=== PATIENT | male | born 1965 | race Caucasian/White ===

== ENCOUNTER → 2019-10-15 14:30 | Outpatient (BNVA) | payer MEDICAID, SELFPAY | PROVIDERS: Family Provider Family Medicine; PCP Urology; Visit Provider Nurse Practitioner Family | DX: R39.9 Unspecified symptoms and signs involving the genitourinary system (principal); R33.9 Retention of urine, unspecified | CPT/HCPCS: 81001 ==

== ENCOUNTER 2019-11-02 08:56 | Outpatient (CLI) | payer MEDICAID, SELFPAY ==
[2019-11-02] MEDS: iohexol 300 mg/mL 100 mL Btl IV (09:27)
--- NOTE | 2019-11-02 09:30 | CT_ITS ---
WS: [id number] CT ABDOMEN PELVIS TECHNIQUE: Noncontrast CT of the abdomen and contrast-enhanced CT of the abdomen and pelvis with yaneth nal and sagittal reformatted images. CLINICAL INFORMATION: GROSS HEMATURIA COMPARISON: CT 11 14,015 DLP: 2695.[address] scans at [facility] use at least one of these dose optimization techniques: automat ed exposure control; mA and/or kV adjustment per patient size (includes targeted exams where dose is matched to clinical indication); or iterative reconstruction. FINDINGS: Mild diffuse fatty infiltration of the liver. Cholecystectomy clips. Normal portal vein and splenic v ein. Splenic granulomas. Normal GE junction. Lung bases are well aerated. Slight atelectasis in lung bases. Noncalcified nodule in the lingula measuring 6 mm. Normal pancreas. Cholecystectomy clips. Adrenal glands are normal. Normal renal parenchymal enhanceme nt. No hydronephrosis. Normal caliber abdominal aorta. Normal sigmoid colon. No evidence of small or large bowel obstruction. Noncontrast kidneys are normal. No obstructing renal or ureteral calculi. No hydronephrosis. Slight r etrolisthesis L4 on L5. Chronic bilateral pars defects L5-S1 with slight anterolisthesis. Normal fortino ical medullary enhancement and normal nephrograms. Normal excretion on the delayed images. Normal con trast-filled bladder. CT/CT abdomen pelvis wo/w [id number] IMPRESSION: 1. No hydronephrosis. No obstructing renal or ureteral calculi. 2. Bladder is normal in appearance. 3. Normal ureteral excretion on the delayed imaging. Normal nephrograms. 4. 6 mm noncalcified nodule in the lingula. Recommend 12 month follow-up. 5. Cholecystectomy clips. 6. Mild diffuse fatty infiltration liver. 7. Normal caliber abdominal aorta. 8. Chronic bilateral pars defects L5-S1 with slight anterolisthesis measuring 2 mm.
== END 2019-11-02 08:57 | disposition home or self-care (01) ==
LOC: RAD 08:59
PROVIDERS: Family Provider Family Medicine; PCP Urology; Visit Provider Nurse Practitioner Family
DX: R31.0 Gross hematuria (principal); K76.0 Fatty (change of) liver, not elsewhere classified
CPT/HCPCS: 74178

== ENCOUNTER 2021-08-15 12:43 | Outpatient (CLI) | payer MEDICAID, SELFPAY | END 2021-08-15 12:44 | disposition home or self-care (01) | PROVIDERS: PCP Family Medicine; Visit Provider Urology | DX: N30.01 Acute cystitis with hematuria (principal); N52.1 Erectile dysfunction due to diseases classified elsewhere; Z12.5 Encounter for screening for malignant neoplasm of prostate | CPT/HCPCS: 81003; 84153; 99213 ==

== ENCOUNTER → 2021-08-27 19:28 | Outpatient (BNVA) | payer MEDICAID, SELFPAY | PROVIDERS: PCP Family Medicine; Visit Provider Emergency Medicine | DX: Z20.822 Contact with and (suspected) exposure to COVID-19 (principal) | CPT/HCPCS: 87635 ==

== ENCOUNTER → 2022-10-17 10:06 | Outpatient (BNVA) | payer MEDICAID, SELFPAY | PROVIDERS: PCP Family Medicine; Referring Provider Family Medicine; Visit Provider Specialist | DX: R56.9 Unspecified convulsions (principal); M23.52 Chronic instability of knee, left knee; R29.90 Unspecified symptoms and signs involving the nervous system; G43.711 Chronic migraine without aura, intractable, with status migrainosus | CPT/HCPCS: 99204 ==

== ENCOUNTER → 2022-11-22 08:43 | Outpatient (BNVA) | payer MEDICAID, SELFPAY | PROVIDERS: PCP Family Medicine; Referring Provider Specialist; Visit Provider Student in an Organized Health Care Education/Training Program | DX: M23.307 Other meniscus derangements, unspecified meniscus, left knee | CPT/HCPCS: 73560; 73565; 99203 ==